=== PATIENT | male | born 1995 | race Caucasian/White ===

== ENCOUNTER 2018-06-01 02:51 | Emergency (ER) | payer OTHER ==
[~2018-06-01 02:51] MED LIST: ACE3 PO; ACET-1966 PO; AMOX1TAB9; BENZ200C15; DOCU-416 PO; HYDR-3250 PO; IBUP800T37 PO; KET10 PO; NO RTN MEDS; ONDA4TAB PO; ONDA4TAB97 PO; PER PO; PROM-110 PO; SULF-198 PO
--- NOTE | 2018-06-01 02:54 | ER Report ---
History and Physical Time Seen By MD: 02:53 HPI/ROS CHIEF COMPLAINT: Right hand injury HISTORY OF PRESENT ILLNESS: 23-year-old male presents a ambulatory to the ER complaining of right hand pain. He's had decreased range of motion in the 4th and 5th digits after punching a wall 30 minutes prior to arrival. Patient thinks she may have a boxer's fracture. He felt a snapping sensation when he punched a wall. REVIEW OF SYSTEMS: Respiratory: No cough, no dyspnea. Cardiovascular: No chest pain, no palpitations. Gastrointestinal: No vomiting, no abdominal pain. Musculoskeletal: As above Allergies: Coded Allergies: cefixime (Verified Allergy, Intermediate, 06/01/18) HIVES amoxicillin (Verified Allergy, Mild, hives, 03/17/14) Uncoded Allergies: KABA BEANS/NAVY BEANS (Adverse Reaction, Mild, VOMITING, 11/07/11) Home Meds Discontinued Reported Medications Benzonatate (BENZONATATE) 200 Mg Capsule 11/01/17 Amoxicillin/Potassium Clav (AMOX TR-K CLV 875-125 MG TAB) 1 Each Tablet 11/01/17 Ibuprofen (IBUPROFEN) 800 Mg Tablet, 1 TAB PO Q6H 03/17/14 Acetaminophen (TYLENOL) 325 Mg Tablet, 325 MG PO 03/17/14 Reviewed Nurses Notes: Yes Old Medical Records Reviewed: Yes Hx Smoking: No Smoking Status: Never Smoker Exposure to Second Hand Smoke?: No Hx Substance Use Disorder: No Hx Alcohol Use: No Constitutional Vital Sign - Last 24 Hours 06/01/18 02:55 Temp 97.5 Pulse 72 Resp 16 B/P (MAP) 118/59 Pulse Ox 94 O2 Delivery Room Air Physical Exam General Appearance: The patient is alert, has no immediate need for airway protection and no current signs of toxicity. Mild distress Eyes: Pupils equal and round no injection. Respiratory: Chest is non tender, lungs are clear to auscultation. Cardiac: regular rate and rhythm Gastrointestinal: Abdomen is soft and non tender, no masses, bowel sounds normal. Musculoskeletal: Neck: Neck is supple and non tender. Extremities have full range of motion and are non tender. Close examination of the right hand reveals soft tissue swelling over the 4th and 5th MCP knuckles. There is decreased range of motion at this joint. All digits are neurovascularly intact. The wrist is unremarkable on palpation and passive range of motion. Skin: No rashes or lesions. [ ] DIFFERENTIAL DIAGNOSIS: After history and physical exam differential diagnosis was considered for sprain, strain, fracture, dislocation, contusion, boxer's fracture. Medical Decision Making EKG/Imaging Imaging X-ray: Right hand, 3 views was obtained. I viewed the images myself on the PACS system. My interpretation of the images is: No fracture no dislocation, no malalignment. The radiologist interpretation had no clinically significant variation from this interpretation. ED Course/Re-evaluation ED Course Patient was admitted to an examination room. H&P was done. The differential diagnoses was considered. On conical examination. Patient has significant decreased range of motion in the 3rd and 4th MCP knuckles. There is bruising and cyanosis. Patient thinks he may have a boxer's fracture. He did describe a popping sensation at the time of injury. Diagnostic x-rays were performed which show no obvious fracture or dislocation. Patient's reassured that he likely has a hand contusion. The conservative treatment is appropriate. Patient advised to take ibuprofen 600 mg 3 times daily with food. Apply ice to his hand for the next 2-3 days. Decision to Disposition Date: Jun 01, 2018 Decision to Disposition Time: 03:22 Depart Departure Latest Vital Signs Vital Signs Date Time Temp Pulse Resp B/P (MAP) Pulse Ox O2 Delivery O2 Flow Rate FiO2 06/01/18 02:55 97.5 72 16 118/59 94 Room Air Impression: Primary Impression: Contusion of right hand Condition: Improved Disposition: HOME OR SELF-CARE Patient Instructions: Contusion in Adults (ED) Additional Instructions: Take ibuprofen 200 mg 3 tablets 3 times a day with food Apply ice packs to the affected area Follow-up with your primary care if unimproved in 3-5 days. Problem Qualifiers Primary Impression: Contusion of right hand Encounter type: initial encounter Qualified Codes: S60.221A - Contusion of right hand, initial encounter BUD BELL DO Jun 01, 2018 02:54
[2018-06-01 02:55] VITALS: BP 118/59
--- NOTE | 2018-06-01 03:33 | RADIOLOGY IMAGING REPORT ---
FACILITY: [facility] - [place] PATIENT NAME: Gee Zuñiga : 1995 MR: [id number] V: [id number] EXAM DATE: [id number] ORDERING PHYSICIAN: BUD BELL TECHNOLOGIST: Location: [facility] - [place] Patient: Gee Zuñiga : 1995 Visit/Account:[id number] Date of Sevice: 06/01/2018 INDICATION: punched wall 30 minutes ago EXAM DATE: 06/01/2018 2:55 AM COMPARISON: None. FINDINGS: 3 views right hand. Mineralization is normal. No acute alignment abnormality or fracture. There may be dorsal soft tissue swelling over the metacarpophalangeal joints. IMPRESSION: No acute osseous abnormality of the right hand. Report Dictated By: Yung Dan MD at 06/01/2018 3:27 AM Report E-Signed By: Yung Dan MD at 06/01/2018 3:29 AM WSN:[id number]
== END 2018-06-01 03:33 | disposition home or self-care (01) ==
LOC: ER 03:00
DX: S60.221A Contusion of right hand, initial encounter (principal)
CPT/HCPCS: 99283

== ENCOUNTER 2018-09-10 09:18 | Emergency (ER) | payer OTHER ==
--- NOTE | 2018-09-10 09:37 | ER Report ---
History and Physical Time Seen By MD: 09:30 Hx. of Stated Complaint: PATIENT REPORTS COLD LIKE SYMPTOMS SINCE SATURDAY. HE REPORTS THAT HIS SYMPTOMS HAVE BEEN GETTING WORSE. HE REPORTS SHORTNESS OF BREATH, COUGH, CONGESTION AND PRESSURE IN HIS HEAD HPI/ROS CHIEF COMPLAINT: Tristin breath HISTORY OF PRESENT ILLNESS: Otherwise healthy 23-year-old male comes emergency Department with 4 days of worsening shortness of breath patient actually states that he's had some orthopnea mild PND and is awoken short of breath patient since he has some mild nasal congestion denies any chest pain abdominal pain nausea vomiting diarrhea fever chills associated exertional dyspnea associated dyspnea at rest and a 76 his had a pneumonia is had no pneumothorax has no significant medical history is a nonsmoker REVIEW OF SYSTEMS: Respiratory: No cough, dyspnea. Cardiovascular: No chest pain, no palpitations. Gastrointestinal: No vomiting, no abdominal pain. Musculoskeletal: No back pain. Remainder of the 14 system rev: Yes Allergies: Coded Allergies: cefixime (Verified Allergy, Intermediate, 06/01/18) HIVES amoxicillin (Verified Allergy, Mild, hives, 03/17/14) Uncoded Allergies: KABA BEANS/NAVY BEANS (Adverse Reaction, Mild, VOMITING, 11/07/11) Reviewed Nurses Notes: Yes Old Medical Records Reviewed: Yes Hx Smoking: No Smoking Status: Never Smoker Exposure to Second Hand Smoke?: No Hx Substance Use Disorder: No Hx Alcohol Use: No Constitutional Vital Sign - Last 24 Hours 09/10/18 09/10/18 09/10/18 09/10/18 09:21 09:23 09:30 09:48 Temp 98.9 Pulse 79 79 Resp 24 B/P (MAP) 130/84 130/84 (99) 119/78 (92) Pulse Ox 94 93 O2 Delivery Room Air 09/10/18 09/10/18 09/10/18 10:00 10:18 10:30 Pulse 69 B/P (MAP) 117/67 (84) 118/68 (85) Pulse Ox 94 Physical Exam General Appearance: The patient is alert, has no immediate need for airway protection and no current signs of toxicity. [ ] Eyes: Pupils equal and round no injection. Respiratory: Chest is non tender, lungs are clear to auscultation. Cardiac: regular rate and rhythm [ ] Gastrointestinal: Abdomen is soft and non tender, no masses, bowel sounds normal. Musculoskeletal: Neck: Neck is supple and non tender. Extremities have full range of motion and are non tender. Skin: No rashes or lesions. [ ] DIFFERENTIAL DIAGNOSIS: After history and physical exam differential diagnosis was considered for pneumonia pulmonary emboli congestive heart failure myocardial ischemia viral pneumonia viral upper respiratory Medical Decision Making Data Points Result Diagram: 09/10/18 0946 09/10/18 0946 Laboratory Hematology Test 09/10/18 09:46 Red Blood Count 5.44 M/uL (4.00-5.60) Mean Corpuscular Volume 90.2 fL (80.0-96.0) Mean Corpuscular Hemoglobin 31.5 pg (26.0-33.0) Mean Corpuscular Hemoglobin Concent 34.9 g/dL (32.0-36.0) Red Cell Distribution Width 12.4 % (11.5-14.5) Mean Platelet Volume 7.8 fL (7.2-11.1) Neutrophils (%) (Auto) % (39.4-72.5) Lymphocytes (%) (Auto) % (17.6-49.6) Monocytes (%) (Auto) % (4.1-12.4) Eosinophils (%) (Auto) % (0.4-6.7) Basophils (%) (Auto) % (0.3-1.4) Nucleated RBC Relative Count (auto) /100WBC Neutrophils # (Auto) K/uL (2.0-7.4) Lymphocytes # (Auto) K/uL (1.3-3.6) Monocytes # (Auto) K/uL (0.3-1.0) Eosinophils # (Auto) K/uL (0.0-0.5) Basophils # (Auto) K/uL (0.0-0.1) Nucleated RBC Absolute Count (auto) K/uL Neutrophils % (Manual) 43 % (39.4-72.5) Lymphocytes % (Manual) 23 % (17.6-49.6) Atypical Lymphocytes % 20 % Monocytes % (Manual) 14 % (4.1-12.4) Eosinophils % (Manual) 0 % (0.4-6.7) Basophils % (Manual) 0 % (0.3-1.4) Peripheral Blood Smear Yes Y/N D-Dimer Quantitative (PE/DVT) < 0.27 ug/ml (0-0.50) Sodium Level 139 mmol/L (137-145) Potassium Level 3.7 mmol/L (3.5-5.0) Chloride Level 102 mmol/L (98-107) Carbon Dioxide Level 26 mmol/L (22-30) Blood Urea Nitrogen 9 mg/dl (9-21) Creatinine 1.10 mg/dl (0.66-1.25) Glomerular Filtration Rate Calc > 60.0 Random Glucose 95 mg/dl (75-110) Calcium Level 9.1 mg/dl (8.4-10.2) Total Bilirubin 1.0 mg/dl (0.2-1.3) Aspartate Amino Transf (AST/SGOT) 20 U/L (0-35) Alanine Aminotransferase (ALT/SGPT) 31 U/L (0-56) Alkaline Phosphatase 74 U/L (0-126) Troponin I < 0.012 ng/ml B-Type Natriuretic Peptide 9 pg/ml (0-100) Total Protein 7.2 g/dl (6.3-8.2) Albumin 4.1 g/dl (3.5-5.0) Chemistry Test 09/10/18 09:46 White Blood Count 5.8 k/uL (4.5-11.0) Red Blood Count 5.44 M/uL (4.00-5.60) Hemoglobin 17.1 g/dL (14.0-18.0) Hematocrit 49.0 % (42.0-52.0) Mean Corpuscular Volume 90.2 fL (80.0-96.0) Mean Corpuscular Hemoglobin 31.5 pg (26.0-33.0) Mean Corpuscular Hemoglobin Concent 34.9 g/dL (32.0-36.0) Red Cell Distribution Width 12.4 % (11.5-14.5) Platelet Count 176 K/uL (150-450) Mean Platelet Volume 7.8 fL (7.2-11.1) Neutrophils (%) (Auto) % (39.4-72.5) Lymphocytes (%) (Auto) % (17.6-49.6) Monocytes (%) (Auto) % (4.1-12.4) Eosinophils (%) (Auto) % (0.4-6.7) Basophils (%) (Auto) % (0.3-1.4) Nucleated RBC Relative Count (auto) /100WBC Neutrophils # (Auto) K/uL (2.0-7.4) Lymphocytes # (Auto) K/uL (1.3-3.6) Monocytes # (Auto) K/uL (0.3-1.0) Eosinophils # (Auto) K/uL (0.0-0.5) Basophils # (Auto) K/uL (0.0-0.1) Nucleated RBC Absolute Count (auto) K/uL Neutrophils % (Manual) 43 % (39.4-72.5) Lymphocytes % (Manual) 23 % (17.6-49.6) Atypical Lymphocytes % 20 % Monocytes % (Manual) 14 % (4.1-12.4) Eosinophils % (Manual) 0 % (0.4-6.7) Basophils % (Manual) 0 % (0.3-1.4) Peripheral Blood Smear Yes Y/N D-Dimer Quantitative (PE/DVT) < 0.27 ug/ml (0-0.50) Glomerular Filtration Rate Calc > 60.0 Calcium Level 9.1 mg/dl (8.4-10.2) Total Bilirubin 1.0 mg/dl (0.2-1.3) Aspartate Amino Transf (AST/SGOT) 20 U/L (0-35) Alanine Aminotransferase (ALT/SGPT) 31 U/L (0-56) Alkaline Phosphatase 74 U/L (0-126) Troponin I < 0.012 ng/ml B-Type Natriuretic Peptide 9 pg/ml (0-100) Total Protein 7.2 g/dl (6.3-8.2) Albumin 4.1 g/dl (3.5-5.0) Coagulation Test 09/10/18 09:46 D-Dimer Quantitative (PE/DVT) < 0.27 ug/ml ED Course/Re-evaluation ED Course ED clinical course 23-year-old male comes in with shortness of breath complaining orthopnea PND P&P is negative d-dimer's negative troponin markers are all negative patient has 0 risk factors for cardiac ischemia hours EKG showed nothing focal he has no sign of pneumonia or bronchitis on his x-ray he does show upper respiratory type viral symptoms most likely viral upper respiratory infection will have discharged with upper respiratory and follow-up accordingly Decision to Disposition Date: Sep 10, 2018 Decision to Disposition Time: 10:37 Depart Departure Latest Vital Signs Vital Signs Date Time Temp Pulse Resp B/P (MAP) Pulse Ox O2 Delivery O2 Flow Rate FiO2 09/10/18 10:30 118/68 (85) 09/10/18 10:18 69 94 09/10/18 09:21 98.9 24 Room Air Impression: Primary Impression: Upper respiratory infection Condition: Improved Disposition: HOME OR SELF-CARE Referrals: GIACOMO JENKINS MD 5 Days Patient Instructions: Upper Respiratory Infection (DC) GANESH CRAIG MD Sep 10, 2018 09:37
--- NOTE | 2018-09-10 09:45 | EKG ---
[facility] PATIENT NAME: NEYDA PINA : [id number] MR: [id number] V: [id number] EXAM DATE: ORDERING PHYSICIAN: GANESH CRAIG TECHNOLOGIST: DONTE Mason Reason : SOB Blood Pressure : / mmHG Vent. Rate : 073 BPM Atrial Rate : 073 BPM P-R Int : 138 ms QRS Dur : 100 ms QT Int : 386 ms P-R-T Axes : 008 034 007 degrees QTc Int : 425 ms Normal sinus rhythm Nonspecific T wave abnormality Abnormal ECG No previous ECGs available Confirmed by PIETRO BOOGIE ([id number]) on 09/10/2018 8:39:02 PM Referred By: RAFA Confirmed By:PIETRO BOOGIE
[2018-09-10 09:55] LABS: PLATELET COUNT, AUTOMATED 176 K/uL (150-450)
--- NOTE | 2018-09-10 10:24 | RADIOLOGY IMAGING REPORT ---
FACILITY: [facility] PATIENT NAME: Gee Zuñiga : 1995 MR: [id number] V: [id number] EXAM DATE: [id number] ORDERING PHYSICIAN: GANESH CRAIG TECHNOLOGIST: Location: [facility] Patient: Gee Zuñiga : 1995 Visit/Account:[id number] Date of Sevice: 09/10/2018 Exam type: CHEST PA AND LAT History: Shortness of breath, chest pain since Saturday Comparison: November 01, 2017. Findings: The lungs are free of acute effusions, infiltrates or edema. There is no evidence of a pneumothorax or pneumomediastinum. Cardiac silhouette is normal. The trachea is in midline. IMPRESSION: 1. No acute cardiopulmonary process is seen Report Dictated By: Sherrell Isaac MD at 09/10/2018 10:18 AM Report E-Signed By: Sherrell Isaac MD at 09/10/2018 10:20 AM WSN:[email or web address]
[2018-09-10 10:30] VITALS: BP 118/68
== END 2018-09-10 10:48 | disposition home or self-care (01) ==
LOC: ER 09:18
DX: J06.9 Acute upper respiratory infection, unspecified (principal)
CPT/HCPCS: 71046; 82040; 82247; 82310; 82374; 82435; 82565; 82947; 83880; 84075; 84132; 84155; 84295; 84450; 84460; 84484; 84520; 85025; 85379; 93005; 99284

== ENCOUNTER 2019-01-11 02:25 | Emergency (ER) | payer OTHER ==
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
[2019-01-11] MEDS ORDERED: ONDANSETRON 4 MG ODT TABDP SL ONE (03:20)
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
[2019-01-11] MEDS ORDERED: LOR5/325 PO (03:53)
[2019-01-11] MEDS ORDERED: ONDA4TAB97 PO (03:53)
[2019-01-11 04:30] VITALS: BP 117/71
== END 2019-01-11 04:54 | disposition home or self-care (01) ==
LOC: ER 02:40
DX: S02.2XXA Fracture of nasal bones, initial encounter for closed fracture (principal); S06.0X9A Concussion with loss of consciousness of unspecified duration, initial encounter; F10.920 Alcohol use, unspecified with intoxication, uncomplicated; Y04.2XXA Assault by strike against or bumped into by another person, initial encounter
CPT/HCPCS: 70450; 70486; 99284; S0119

== ENCOUNTER 2019-01-17 08:09 | Emergency (ER) | payer OTHER ==
[~2019-01-17 08:09] MED LIST changes: +LOR5/325 PO
[2019-01-17 08:44] LABS: PLATELET COUNT, AUTOMATED 189 K/uL (150-450)
--- NOTE | 2019-01-17 09:11 | EKG ---
FACILITY: [facility] - [place] PATIENT NAME: NEYDA PINA : [id number] MR: [id number] V: [id number] EXAM DATE: ORDERING PHYSICIAN: SEUN FLAHERTY TECHNOLOGIST: Test Reason : CP Blood Pressure : / mmHG Vent. Rate : 078 BPM Atrial Rate : 078 BPM P-R Int : 124 ms QRS Dur : 086 ms QT Int : 372 ms P-R-T Axes : 011 035 026 degrees QTc Int : 424 ms Normal sinus rhythm with sinus arrhythmia Nonspecific ST and T wave abnormality Abnormal ECG When compared with ECG of 10-SEP-2018 09:36, No significant change was found Confirmed by MITZY SARAH ([id number]) on 01/17/2019 7:32:09 PM Referred By: Confirmed By:MITZY SARAH
--- NOTE | 2019-01-17 09:32 | RADIOLOGY IMAGING REPORT ---
FACILITY: [facility] - [place] PATIENT NAME: Gee Zuñiga : 1995 MR: [id number] V: [id number] EXAM DATE: ORDERING PHYSICIAN: SEUN FLAHERTY TECHNOLOGIST: Location: [facility] Patient: Gee Zuñiga : 1995 Visit/Account:[id number] Date of Sevice: 01/17/2019 Study: Frontal and lateral views of the chest Indication: Chest pain Comparison study: None Findings: PA and lateral views of the chest demonstrate no evidence of acute infiltrate. There is no evidence of pleural effusion. There is no evidence of pneumothorax. The mediastinal, cardiac, and diaphragmatic contours are unremarkable. The visualized bony structures are unremarkable. IMPRESSION: Unremarkable chest. Report Dictated By: Osman Phillip at 01/17/2019 9:28 AM Report E-Signed By: Osman Phillip at 01/17/2019 9:28 AM WSN:[id number]
[2019-01-17 10:00] VITALS: BP 123/73
[2019-01-17] MEDS ORDERED: NAPR-731 PO (10:00)
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
== END 2019-01-17 10:10 | disposition home or self-care (01) ==
LOC: ER 08:24
DX: R07.9 Chest pain, unspecified (principal)
CPT/HCPCS: 71046; 82040; 82247; 82310; 82374; 82435; 82565; 82947; 84075; 84132; 84155; 84295; 84450; 84460; 84484; 84520; 85025; 87502; 93005; 99284